=== PATIENT | male | born 1970 | race Caucasian/White ===

== ENCOUNTER 2016-12-07 08:17 | Day surgery (SDC) | payer OTHER ==
[2016-12-05 11:35] VITALS: BMI 25.8
--- NOTE | 2016-12-07 09:54 | HP ---
History & Physical Update - History History: No Change - Physical Physical: No Change - Assessment Assessment: No Change - Plan Plan: No Change
[2016-12-07] MEDS ORDERED: LIDOCAINE HCL/PF 2% SDV 5ML VIAL ONE (10:56)
[2016-12-07] MEDS ORDERED: LIDOCAINE HCL 1%, 10 MG/ML (20ML VIAL) ONE (10:56)
[2016-12-07] MEDS ORDERED: ROCURONIUM BROMIDE 50 MG/5 ML VIAL ONE (10:56)
[2016-12-07] MEDS ORDERED: PROPOFOL 20 ML ONE (10:56)
[2016-12-07] MEDS ORDERED: ceFAZolin SODIUM 1 GM VIAL IVPB ONE (11:00)
[2016-12-07] MEDS ORDERED: BUPIVACAINE HCL/PF 0.5% (5MG/ML) 10 ML VIAL IJ ONE (11:21)
[2016-12-07] MEDS ORDERED: GLYCOPYRROLATE 0.2 MG/1 ML VIAL ONE ×2 (12:54→12:55)
[2016-12-07] MEDS ORDERED: NEOSTIGMINE METHYLSULFATE 0.5 MG/ML - 10 ML MDV ONE (12:54)
[2016-12-07] MEDS ORDERED: PROMETHAZINE HCL 25 MG/1 ML VIAL IVPUSH PRN (13:10)
[2016-12-07] MEDS ORDERED: oxyCODONE HCL 5 MG TABLET PO PRN (13:10)
[2016-12-07] MEDS ORDERED: ONDANSETRON 4 MG/2 ML VIAL IVPUSH PRN (13:10)
--- NOTE | 2016-12-07 13:37 | OP ---
Operative Note - Note: Operative Date: 12/07/16 Pre-Operative Diagnosis: left inguinal hernia Operation: robotic LIH repair with mesh Implants: Progrip inguinal hernia mesh Surgeon: Johnnie Ornelas Insurance Special Agent: Sandra Potts Anesthesiologist/MANAGER DELI: Cristo Michaels Anesthesia: General Estimated Blood Loss (mls): 15 Operative Report Dictated: Yes
--- NOTE | 2016-12-07 13:38 | OP ---
Operative Note - Note: Operative Date: 12/07/16 Pre-Operative Diagnosis: left inguinal hernia Operation: rotobitc assisted repair of left inguinal hernia with mesh Surgeon: Johnnie Ornelas [employer] Operator: Sandra oPtts Anesthesiologist/TECHNICAL SERVICES MANAGER: Cristo Michaels Anesthesia: General Estimated Blood Loss (mls): 30 Fluid Volume Replaced (mls): 1,300 Operative Report Dictated: Yes
--- NOTE | 2016-12-07 13:39 | SURG ---
Surgery Plan Coordinator Note Plan Coordinator: Sandra Potts PA-C Date of Service: 12/07/16 Diagnosis: left inguinal hernia Procedure: robotic LIH repair with mesh I was present for the entirety of the operative procedure. For further detail, please refer to operative report. Visit type - Case Type Case Type: Scheduled Admission - Emergency Emergency Visit: No - New patient This patient is new to me today: Yes Date on this admission: 12/07/16 - Critical Care Critical Care patient: No
--- NOTE | 2016-12-07 13:59 | OP ---
DATE OF OPERATION: 12/07/2016 PROCEDURE: Robotic-assisted laparoscopic left inguinal hernia repair with mesh. PREOPERATIVE DIAGNOSIS: Left inguinal hernia. POSTOPERATIVE DIAGNOSIS: Direct left inguinal hernia. SURGEON: Johnnie Ornelas MD POWDER HAND: LAMBERTO Espino ANESTHESIA: General endotracheal. FINDINGS AND PROCEDURE: This is a 46-year-old male who presents with a left- sided inguinal bulge associated with pain on exertion. On physical exam, patient has a reducible left inguinal hernia and no evidence of a right-sided inguinal hernia , so patient was advised elective repair of the hernia and consent was obtained after discussing the risks, benefits, and alternatives to the procedure. Patient was brought to the operating room and placed in supine position. General endotracheal anesthesia was administered. Both arms were tucked to the sides. The abdomen was prepped and draped in the usual sterile fashion. Using 0.5% Marcaine, local anesthesia was administered to the proposed incision sites. The peritoneal cavity was entered using the Veress needle technique via a supraumbilical incision just to the left of the midline. Pneumoperitoneum was established and an 8-mm port was inserted through the supraumbilical incision followed by insertion of the 3D laparoscope. The peritoneal cavity was carefully inspected and it was noted to be free of inadvertent injury. The patient was then placed in a steep Trendelenburg position. Two 8-mm ports were inserted on each side of the supraumbilical port 8 cm away from each other. The target organ was set and the robotic arms were docked. A fenestrated bipolar was inserted through the left-sided port and the EndoWrist andrew connected to monopolar cautery was inserted at the right-sided port. Only a left inguinal hernia was visualized and the right inguinal region had no hernia visualized. The undersigned then scrubbed out to commence the console part of the procedure. Using the EndoWrist andrew, a peritoneal pocket was made at the level of the anterior-superior iliac spine towards the median umbilical ligament. The dissection was carried inferiorly towards the hernia sac using the inferior epigastric vessels as a landmark. The hernia was noted to be a direct hernia medial to the inferior epigastric vessels. Initially, the medial dissection was done towards the underside of the symphysis pubis. The direct hernia was completely reduced, leaving a severely attenuated transversalis fascia back to the inguinal floor. Laterally, the dissection was carried towards the anterior-superior iliac spine and the spermatic cord structures were identified. The peritoneal reflection was dissected free away from the spermatic cord structures for at least about 5 cm from the internal ring. The direct hernia was then apposed with continuous V-Loc 2-0 nonabsorbable sutures, taking bites on the severely attenuated transversalis fascia. Afterwards, the 15 x 10-cm ProGrip inguinal hernia mesh was deployed, making sure that there was at least a 5-cm overlap from the direct hernia. After deployment was deemed satisfactory , the peritoneal pocket was closed with continuous V-Loc 2-0 absorbable sutures. The peritoneal cavity was once again inspected and was noted to be free of active bleeding. The instruments were removed and the pneumoperitoneum was evacuated. The robotic arms were undocked and the ports were removed. The wounds were closed with subcuticular Biosyn 4-0 sutures reinforced with Dermabond. Patient was successfully extubated and transferred to the postanesthesia care unit in satisfactory condition. Estimated blood loss was about 10 mL. Wound class clean. The patient received 2 g of Ancef prior to the start to the procedure. Saqib [id number] MTDD
[2016-12-07 14:53] VITALS: TEMP 98
[2016-12-07] MEDS ORDERED: oxyCODONE HCL 5 MG TABLET ONE ×2 (15:42→16:31)
[2016-12-07 17:50] VITALS: BP 128/80; PULSE 77
== END 2016-12-07 17:40 | disposition home or self-care (01) ==
LOC: JASU-SURG 08:17
PROVIDERS: ATTEND Surgery
PROC: 8E0W4CZ Robotic Assisted Procedure of Trunk Region, Percutaneous Endoscopic Approach (ICD-10-PCS; 2016-12-07)
PROC: 0YU64JZ Supplement Left Inguinal Region with Synthetic Substitute, Percutaneous Endoscopic Approach (ICD-10-PCS; principal; 2016-12-07 10:00)
DX: K40.90 Unilateral inguinal hernia, without obstruction or gangrene, not specified as recurrent (principal)
CPT/HCPCS: 49650; S2900; 94760